=== PATIENT | female | born 1995 ===

== ENCOUNTER 2018-02-08 13:31 | Emergency (ER) | payer SELFPAY ==
[~2018-02-08] VITALS: Ht 167.6 cm; Wt 61.4 kg
[2018-02-08 14:09] VITALS: BP 137/88; PULSE 75; RESP 18; TEMP 98.4; O2SAT 100
[2018-02-08] MEDS ORDERED: TETANUS/DIPHTHERIA TOXOID ADULT 0.5 ML VIAL IM ONE (15:15)
--- NOTE | 2018-02-08 15:38 | PD ---
HPI Chief Complaint: Laceration/Skin Injury Time Seen by Provider: 14:57 Travel History International Travel<30 days: No Contact w/Intl Traveler<30days: No Traveled to known affect area: No History of Present Illness HPI 22-year-old -[place] female presents emergency department with laceration to the tip of the left thumb. Patient states she was at a cooking class when she was cutting potatoes she accidentally lacerated the tip of the left thumb. It is just to the tip with some small involvement of the medial distal nailbed. Bleeding is controlled prior to arrival. Pain is 7 out of 10. Last tetanus shot is unknown. She has no other injuries. She has no known drug allergies. PFSH Past Medical History ?: Not LMP: on now Social History Alcohol Use: Yes Tobacco Use: No Substance Use: No Allergies-Medications (Allergen,Severity, Reaction): Coded Allergies: No Known Allergies (Unverified , 02/08/18) Review of Systems Except as stated in HPI: all other systems reviewed are Neg General / Constitutional: No: Fever Eyes: No: Visual changes HENT: No: Headaches Cardiovascular: No: Chest Pain or Discomfort Respiratory: No: Shortness of Breath Gastrointestinal: No: Abdominal Pain Genitourinary: No: Dysuria Musculoskeletal: No: Pain Skin: Positive Lesions (Laceration left thumb), No Rash Neurologic: No: Weakness Psychiatric: No: Depression Endocrine: No: Polydipsia Hematologic/Lymphatic: No: Easy Bruising Physical Exam Narrative GENERAL: Patient appears in mild to moderate distress per SKIN: Warm and dry. Normal color. Normal turgor. Patient very superficial laceration to the distal medial thumb with a small involvement of the distal nail, with good approximation, and no bleeding. It does not involve the deep structures of the finger. HEAD: Atraumatic. Normocephalic. EYES: Pupils equal and round. No scleral icterus. No injection or drainage. ENT: No nasal bleeding or discharge. Mucous membranes pink and moist. Pharynx is clear, airways patent NECK: Trachea midline. Supple and nontender CARDIOVASCULAR: Regular rate and rhythm. RESPIRATORY: No accessory muscle use. Clear to auscultation. Breath sounds equal bilaterally. MUSCULOSKELETAL: Extremities without clubbing, cyanosis, or edema. No obvious deformities. NEUROLOGICAL: Awake and alert. No obvious cranial nerve deficits. Motor grossly within normal limits. Five out of 5 muscle strength in the arms and legs. Normal speech. PSYCHIATRIC: Appropriate mood and affect; insight and judgment normal. Data Data Last Documented VS Vital Signs Date Time Temp Pulse Resp B/P (MAP) Pulse Ox O2 Delivery O2 Flow Rate FiO2 02/08/18 14:09 98.4 75 18 137/88 (104) 100 Orders Orders Tetanus/Diphtheria Tox Adult (Tetanus/Di (02/08/18 15:15) MDM Medical Decision Making Medical Screen Exam Complete: Yes Emergency Medical Condition: Yes Differential Diagnosis Accidental laceration. Nailbed injury per. Need for closure. Need for tetanus. Narrative Course Tetanus is given 0.5 mg IM. Wound is closed with Dermabond, see laceration note. Wound care is discussed with the patient School note was given. Follow-up as needed. Diagnosis Primary Impression: Laceration of left thumb with damage to nail Qualified Codes: S61.112A - Laceration without foreign body of left thumb with damage to nail, initial encounter Patient Instructions: Finger Laceration (ED), General Instructions, Skin Adhesive Care (ED) Departure Forms: School Release Return to School Date: Feb 09, 2018 Additional Instructions: Tetanus is given 0.5 mg IM. Wound is closed with Dermabond, see laceration note. Wound care is discussed with the patient School note was given. Follow-up as needed. Med/Other Pt SpecificInfo: No Meds Exist/No RX given, Wound Care Disposition: 01 DISCHARGE HOME Condition: Stable Ethan Soto Feb 08, 2018 15:38
== END 2018-02-08 16:18 | disposition home or self-care (01) ==
LOC: NEPK 13:31
DX: S61.012A Laceration without foreign body of left thumb without damage to nail, initial encounter (principal); W26.0XXA Contact with knife, initial encounter; Y93.G1 Activity, food preparation and clean up; Z23 Encounter for immunization
CPT/HCPCS: 12001; 12002; 90471; 90714